=== PATIENT | male | born 1960 | race Caucasian/White ===

== ENCOUNTER 2016-11-27 12:05 | Emergency (ER) | payer BC ==
--- NOTE | 2016-12-01 12:41 | ER ---
ADMIT: 11/27/2016 RM/LOC: ER [facility] MR#: [id number] [address] [facility] [address] [place], [place] [id number] BECKY PACHECO [address] [place] [address] Emergency Room Report SEX: M AGE: 56 : 1960 DATE: 11/27/2016 HISTORY OF PRESENT ILLNESS: The patient is a 56-year-old male, presents to emergency room with chronic right back pain. He says it is worse now, it was almost a year ago. In the ER, he says it is better for him to stand than when he sits down and at that time, he was treated with several medications that were helpful, but at the same time, lower his heart rate and he is breathing. He is drinking and tolerates right now. His color is much better. He had a vasovagal after the Dilaudid. PAST MEDICAL HISTORY: Previous back injury and he has also atrial fibrillation, and recently was taken off his Eliquis because they thought that was causing him headache. MEDICATIONS: !. Omeprazole. 1. Tramadol. 2. Sotalol. ALLERGY: Penicillin and sulfa. PHYSICAL EXAMINATION: VITAL SIGNS: Blood pressure 141/92, heart rate 61, respirations 16, and O2 sats 98%. HEENT: Normal inspection. NECK: Supple. RESPIRATIONS: No distress. ABDOMEN: Nontender. NEURO: Oriented x4. PSYCH: Mood and affect appropriate. SKIN: Good color and intact. After he got Dilaudid and ketorolac, we did not give him the Valium fearing that he would have a vasovagal episode like he did last time he was in the ER and lo and behold, he did have it without the Valium, the Dilaudid and it itself did the trick. He immediately became pale and diaphoretic. IMPRESSION: Pain, chronic low back. He was sent home with prednisone, Valium, and [place]. We held them up a little bit and gave him some oral hydration and put him in a Trendelenburg position in order to improve his condition. We will release him as soon as he is able to feel comfortable when walk out of the ER. SRAVAN Hummel / Jordan Garcia MD / jazzminel JOB #: [id number] CC: Jordan Garcia MD, Attending Physician Diogo Saavedra MD, Family Physician
== END 2016-11-27 14:10 | disposition home or self-care (01) ==
LOC: ER 12:05
DX: M54.5 Low back pain (principal); G89.29 Other chronic pain; Z88.0 Allergy status to penicillin; Z88.2 Allergy status to sulfonamides; Z79.899 Other long term (current) drug therapy